=== PATIENT | male | born 1965 | race African-American/Black ===

== ENCOUNTER 2018-04-06 10:48 | Day surgery (SDC) | payer OTHER ==
[2018-04-06 11:59] VITALS: BMI 24.1
[2018-04-06 15:29] VITALS: BP 142/90; PULSE 90; TEMP 97.8
--- NOTE | 2018-04-08 16:23 | PATH ---
Surgical Pathology Report Patient Name: MARCI NO [facility]. Rec. #: [id number] /Age/Gender: 1965 (Age: 52) / M Account: [id number] Location: [facility]-ENDOSCOPY Taken: 04/06/2018 Received: 04/07/2018 Reported: 04/08/2018 Physicians: Davis Murphy D.O. Specimen(s) Received A: BX DUODENUM B: BX PYLORUS C: BX BODY AND ANGULARIS Clinical History Dyspepsia and colorectal cancer screening Postoperative diagnosis: Gastritis, hemorrhoid and diverticulosis Final Diagnosis A. DUODENUM, BIOPSY: DUODENAL MUCOSA WITH NO DIAGNOSTIC ABNORMALITIES. B. PYLORUS, BIOPSY: GASTRIC MUCOSA SHOWING CHRONIC GASTRITIS WITH INTESTINAL METAPLASIA. IMMUNOSTAIN IS NEGATIVE FOR H. PYLORI ORGANISMS. C. BODY AND ANGULARIS, BIOPSY: GASTRIC MUCOSA WITH MILD CHRONIC GASTRITIS. IMMUNOSTAIN IS NEGATIVE FOR H. PYLORI ORGANISMS Electronically Signed Tim Woods M.D. Gross Description A. Received in formalin, labeled "biopsy duodenum" are 3 guzman, irregular portions of soft tissue ranging from 0.2-0.3 cm. in greatest dimension. The specimens are submitted in toto in one cassette. B. Received in formalin, labeled "biopsy pylorus" are 2 guzman, irregular portions of soft tissue measuring 0.2 and 0.3 cm. in greatest dimension. The specimens are submitted in toto in one cassette. C. Received in formalin, labeled "biopsy angularis and body" are 3 guzman, irregular portions of soft tissue ranging from 0.2-0.4 cm. in greatest dimension. The specimens are submitted in toto in one cassette. 04/07/2018 located within [facility]04/07/2018
== END 2018-04-06 15:28 | disposition home or self-care (01) ==
LOC: JOR 10:48 → JASU-ENDO 10:48
PROVIDERS: ATTEND Internal Medicine Gastroenterology
PROC: 0DJD8ZZ Inspection of Lower Intestinal Tract, Via Natural or Artificial Opening Endoscopic (ICD-10-PCS; principal; 2018-04-06 12:00)
DX: Z51.11 Encounter for antineoplastic chemotherapy (principal); K57.30 Diverticulosis of large intestine without perforation or abscess without bleeding; K64.8 Other hemorrhoids
CPT/HCPCS: 88305-TC; 88342-TC

== ENCOUNTER 2019-07-10 07:05 | Emergency (ER) | payer OTHER ==
[2019-07-10 07:13] VITALS: BP 128/87; PULSE 81; TEMP 97.6; BMI 24.3
[2019-07-10] MEDS ORDERED: diphenhydrAMINE HCL 50 MG CAPSULE PO ONE (07:37)
[2019-07-10] MEDS ORDERED: MAG HYDROX/AL HYDROX/SIMETH 30 ML UNIT-DOSE CUP PO ONE (07:37)
[2019-07-10] MEDS ORDERED: KETOROLAC TROMETHAMINE 30 MG/1 ML VIAL IM ONE (07:39)
[2019-07-10] MEDS ORDERED: diphenhydrAMINE HCL 12.5 MG/5 ML UNIT-DOSE CUPS PO ONE (07:39)
--- NOTE | 2019-07-10 07:41 | PDOC ---
Attending Attestation - Resident Resident Name: ColemanFran - ED Attending Attestation I have performed the following: I have examined & evaluated the patient, The case was reviewed & discussed with the resident, I agree w/resident's findings & plan, Exceptions are as noted - HPI HPI: 07/10/19 07:48 53-year-old male with no significant past medical history presents the emergency department with 1 day of sore throat. Patient reports feeling pain when swallowing his saliva last night, took TheraFlu for symptoms with no improvement. He denies any associated fevers, chills, cough, runny nose, ear pain, rashes, body aches. Denies difficulty swallowing, only pain. 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 He reports he feels like he is losing his voice as well. 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 Did not get his flu shot this year. He has annual physicals with his primary doctor. On review of systems denies headaches, dizziness, focal weakness or numbness, chest pain, shortness of breath, abdominal pain, nausea, vomiting, diarrhea, urinary symptoms or lower extremity edema. - Physicial Exam PE: 07/10/19 07:53 GENERAL: Awake, alert, and fully oriented, in no acute distress EYES: PERRLA, EOMI, sclera anicteric, conjunctiva clear ENT: Auricles normal inspection, hearing grossly normal, nares patent, oropharynx erythematous posteriorly but clear without exudates. No tonsillar edema, uvula midline. Moist mucosa NECK: Normal ROM, supple, no lymphadenopathy, JVD, or masses LUNGS: Breath sounds equal, clear to auscultation bilaterally. No wheezes, and no crackles HEART: Regular rate and rhythm, normal S1 and S2, no murmurs, rubs or gallops ABDOMEN: Soft, nontender, normoactive bowel sounds. No guarding, no rebound. No masses EXTREMITIES: Normal range of motion, no edema. No cords, erythema, or tenderness NEUROLOGICAL: Normal speech, cranial nerves intact, equal strength and sensation b/l SKIN: Warm, Dry, normal turgor, no rashes or lesions noted. - Medical Decision Making 07/10/19 07:56 53-year-old male presents emergency department with a sore throat and mild hoarseness to his voice. Patient is tolerating secretions with no respiratory distress. Oral exam with mild erythema but no exudates tonsillar edema. No cervical lymphadenopathy. No fevers. Patient offered strep throat testing, but declines and requests only some pain relief for his sore throat. Most likely viral pharyngitis Patient to be given IM Toradol. He is nontoxic, well-appearing and clinically stable for discharge. I discussed the physical exam findings, ancillary test results and final diagnoses with the patient. I answered all of the patient's questions. The patient was satisfied with the care received and felt comfortable with the discharge plan and treatment plan. The patient will call their primary care physician within 24 hours to arrange follow-up and will return to the Emergency Department with any new, persistent or worsening symptoms.
--- NOTE | 2019-07-10 07:43 | PDOC ---
History of Present Illness - General Chief Complaint: Sore Throat Stated Complaint: UNABLE TO SWALLOW Time Seen by Provider: 07/10/19 07:18 History Source: Patient Exam Limitations: No Limitations - History of Present Illness Initial Comments: 07/11/19 13:31 HPI: 53M no PMH c/o 1 day of sore throat w/o f/c, cough, rhinorrhea. Endorses pain w / swallowing but no difficulty swallowing. No drooling or sob. Denies cp. 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 PMH denies PCP Dr. Osmin HOOD Denies etoh, tobacco Past History - Past Medical History Allergies/Adverse Reactions: Allergies Allergy/AdvReac Type Severity Reaction Status Date / Time No Known Allergies Allergy Verified 07/10/19 07:13 Home Medications: Ambulatory Orders Multivitamin with Iron [Multivitamins with Iron] 1 each PO DAILY 04/06/18 Baker-3 Fatty Acids/Fish Oil [Fish Oil 1,000 mg Capsule] 1 cap PO DAILY COPD: No - Surgical History Abdominal Surgery: Yes (UMBILICAL HERNIA REPAIR) - Psycho Social/Smoking Cessation Hx Smoking History: Never smoked Hx Alcohol Use: No Drug/Substance Use Hx: No Substance Use Type: None Hx Substance Use Treatment: No Review of Systems - Review of Systems Able to Perform ROS?: Yes Comments:: 07/11/19 13:31 ROS: CONSTITUTIONAL: Denies F / C HEENT: Endorses sore throat. Denies rhinorrhea. RESP: Denies SOB, cough CARD: Denies chest pain, palpitations GI: Denies N / V / D, abdominal pain, inability to tolerate PO : Denies dysuria, hematuria, frequency SKIN: Denies rashes NEURO: Denies numbness, tingling, weakness MSK: Denies back pain, myalgias Is the patient limited Sami proficient: No *Physical Exam - Vital Signs Last Vital Signs Temp Pulse Resp BP Pulse Ox 97.6 F 81 18 128/87 99 07/10/19 07:10 07/10/19 07:10 07/10/19 07:10 07/10/19 07:10 07/10/19 07:10 - Physical Exam 07/11/19 13:31 PE: GEN: Well appearing, NAD, comfortable. AAOx3 HEENT: NC/AT, EOMI, PERRLA. No facial asymmetry. Moist mucous membranes, minimal erythema of the posterior oropharynx w/o exudate, no tonsilor edema. Normal voice. Supple neck w/ FROM. No LAD or TTP to the neck. CV: S1/S2, RRR, no m/r/g LUNG: CTAB, no wheezes, crackles, rales, rhonchi. GI: soft, ndnt, +BS, no guarding, no rebound. EXTREMITIES: No obvious deformities of all extremities. SKIN: warm, dry, normal turgor PSYCH: normal mood and affect NEURO: Moving all extremities well. Medical Decision Making - Medical Decision Making 07/10/19 07:42 MDM: 53M w/o PMH c/o 1 day of sore throat. VS WNL, minimally erythematous pharynx w/ o exudate. - benadryl, maalox, toradol - pt declined benadryl - dc home w/ pcp f/u Discharge - Discharge Information Problems reviewed: Yes Clinical Impression/Diagnosis: Sore throat Condition: Stable Disposition: HOME - Admission No - Follow up/Referral Referrals: Osmin Ozuna MD [Primary Care Provider] - - Patient Discharge Instructions Patient Printed Discharge Instructions: DI for Viral Pharyngitis Additional Instructions: Take 600mg ibuprofen as needed every 6 hours for pain. If ibuprofen is not controlling your pain, you may take tylenol. Follow the instructions on the label. For congestion, take over the counter Sudafed 12 hour. Follow up with your primary doctor within 1 week. Return to the emergency department if you have any new, worsening, or concerning symptoms. - Post Discharge Activity
[2019-07-10] MEDS ORDERED: KETOROLAC TROMETHAMINE 30 MG/1 ML VIAL ONE (07:47)
[2019-07-10] MEDS ORDERED: MAG HYDROX/AL HYDROX/SIMETH 30 ML UNIT-DOSE CUP ONE (07:47)
[2019-07-10] MEDS ORDERED: diphenhydrAMINE HCL 25 MG CAPSULE (FP) PO ONE (07:47)
[2019-07-10] MEDS ORDERED: diphenhydrAMINE HCL 12.5 MG/5 ML BULK BOTTLE ONE (07:50)
== END 2019-07-10 08:04 | disposition home or self-care (01) ==
LOC: JER 07:05
PROC: 3E0233Z Introduction of Anti-inflammatory into Muscle, Percutaneous Approach (ICD-10-PCS; principal; 2019-07-10)
DX: J02.9 Acute pharyngitis, unspecified (principal)
CPT/HCPCS: 99281-25

== ENCOUNTER 2023-10-05 10:00 | Day surgery (SDC) | payer OTHER ==
[2023-10-05 09:29] VITALS: BMI 22.6
[2023-10-05 10:48] VITALS: TEMP 97.1
[2023-10-05 11:22] VITALS: BP 125/84; PULSE 66; RESP 14
== END 2023-10-05 11:38 | disposition home or self-care (01) ==
LOC: JASU-ENDO 10:00
PROVIDERS: ATTEND Internal Medicine Gastroenterology
PROC: 0DB68ZX Excision of Stomach, Via Natural or Artificial Opening Endoscopic, Diagnostic (ICD-10-PCS; 2023-10-05)
PROC: 0DB78ZX Excision of Stomach, Pylorus, Via Natural or Artificial Opening Endoscopic, Diagnostic (ICD-10-PCS; 2023-10-05)
PROC: 0DBL8ZX Excision of Transverse Colon, Via Natural or Artificial Opening Endoscopic, Diagnostic (ICD-10-PCS; principal; 2023-10-05 09:30)
DX: Z12.11 Encounter for screening for malignant neoplasm of colon (principal); K63.5 Polyp of colon; K64.8 Other hemorrhoids; K29.50 Unspecified chronic gastritis without bleeding; K31.A19 Gastric intestinal metaplasia without dysplasia, unspecified site
CPT/HCPCS: 88305-TC; 88342-TC